=== PATIENT | female | born 1950 | race African-American/Black ===

== ENCOUNTER 2024-02-08 07:26 | Emergency (ER) | payer BC ==
[~2024-02-08] VITALS: Ht 167.6 cm; Wt 80.0 kg
[2024-02-08 07:32] VITALS: O2SAT 99
[2024-02-08] MEDS: HYDROCODONE/ACETAMINOPHEN 5/325MG TABLET PO STA (08:08)
[2024-02-08] MEDS ORDERED: HYDR-4001 MT (10:01)
[2024-02-08 10:13] VITALS: BP 104/43; PULSE 69; RESP 16; TEMP 36.83628; O2SAT 98
== END 2024-02-08 11:38 | disposition home or self-care (01) ==
LOC: ER 07:40
DX: S20.219A Contusion of unspecified front wall of thorax, initial encounter (principal); Z88.0 Allergy status to penicillin; Z99.2 Dependence on renal dialysis; W01.0XXA Fall on same level from slipping, tripping and stumbling without subsequent striking against object, initial encounter; Y93.89 Activity, other specified; Y92.89 Other specified places as the place of occurrence of the external cause; Y99.8 Other external cause status
CPT/HCPCS: 71101; 99283